=== PATIENT | female | born 1975 | race Caucasian/White ===

== ENCOUNTER 2016-12-06 22:00 | Emergency (ER) | payer OTHER ==
[2016-12-06] MEDS ORDERED: KETOROLAC 15 MG/1 ML VIAL IVP ONE (22:21)
[2016-12-06] MEDS ORDERED: cefTRIAXone Inj 2 GM in Sodium Chloride 0.9% 100 ML IV ONE (22:21)
[2016-12-06] MEDS ORDERED: Sodium Chloride 0.9% 1,000 ML PRIMARY IV ONE (22:21)
[2016-12-06] MEDS ORDERED: DIPH,PERTUSS,TET(ADACEL) VAC/PF 0.5 ML (Tdap) IM ONE (22:27)
--- NOTE | 2016-12-06 22:30 | PDOC ---
Skin Rash/Insect/Abscess HPI - General Chief Complaint: Integumentary Stated Complaint: ABRASION TO LEFT KNEE Date Seen by Provider: 12/06/16 Time Seen by Provider: 22:25 Source: POSITIVE: Patient Exam Limitations: POSITIVE: No limitations Nurse's Notes Reviewed & Considered: Yes - History of Present Illness Initial Comments: Old female sustained a high pressure water injection of her left knee on Tuesday. She comes in now with erythema pain and swelling of the left knee. She denies any headache, chest pain, shortness of breath, fever chills or sweats , nausea vomiting or diarrhea. 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 Have you received a tetanus shot in the past 10 years?: No Body Location Affected: REPORTS: Lower Extremity (L) Timing: REPORTS: Abrupt Duration: >24 hours Severity: Moderate Quality: REPORTS: "Pain", Tenderness Identified Causes: REPORTS: Yes When Exposed: REPORTS: Just Prior to Sx Onset Where Exposed: REPORTS: Work Suspected Etiology: REPORTS: Other (High-pressure water injection from a cow washer.) Recent Care Received: REPORTS: Denies Any Prior Injuries Related to Current Complaint?: No - Patient Home Medications Home Medications: Home Medications NK [No Home Medications Reported] 12/06/16 - Patient Allergies Allergies/Adverse Reactions: Allergies Allergy/AdvReac Type Severity Reaction Status Date / Time Sulfa (Sulfonamide Allergy HIVES Verified 12/06/16 22:19 Antibiotics) ROS - Limitations ROS Limitations: No Limitations Constitution: REPORTS: Denies Symptoms Cardiovascular: REPORTS: Denies Cardiac Symptoms Respiratory: REPORTS: Denies Resp Symptoms Neurological: REPORTS: Denies Neuro Symptoms Gastrointestinal: REPORTS: Denies GI Symptoms Endocrine: REPORTS: Denies Symptoms Musculoskeletal: REPORTS: Denies MS Symptoms Genitourinary: REPORTS: Denies Symptoms Eyes: REPORTS: Denies Symptoms ENT: REPORTS: Denies Symptoms Skin: REPORTS: Other (Erythema and swelling with heat left knee.) Lympathic: REPORTS: Denies Lympathic Symptoms Immunologic: POSITIVE: Denies Symptoms Psychiatric: POSITIVE: Denies Psych Symptoms Skin Rash/Insect/Abscess Exam - General Appearance General Appearance: REPORTS: Alert, Cooperative, No Acute Distress - Skin Skin: REPORTS: Warm, Dry, Tender Indurated Area, Erythema, Other (Over the medial left knee an area of induration and tenderness present) Skin Location: REPORTS: Extremities (Left medial knee) Skin Symptoms: REPORTS: Warmth, Tenderness, Swelling, Induration - Extremities Extremity: Non-Tender: (RUE), (RLE), (LLE), Normal ROM: (All Extremities), Normal Inspection: (LLE), (RLE), (RUE), Pelvis Stable: (All Extremities), Normal Tendon Exam: (All Extremities), Edema / Swelling: (LUE), Tender: (LUE), Signs / Symptoms of Infection Present: (LUE), Ecchymosis: (LUE), Erythema: (LUE) - HEENT HEENT: POSITIVE: Head Inspection Nml, Eyes Inspection Nml, Ears Inspection Nml, Nose Inspection Nml, Oral/Dental Inspect. Nml, Pharynx Inspect. Nml, PERRL, EOMI - Neck Neck: REPORTS: Trachea Midline, No Swelling - Respiratory Respiratory: REPORTS: No Respiratory Distress, Breath Sounds Normal - Cardiovascular Cardiovascular: REPORTS: Regular Rate and Rhythm, Heart Sounds Normal, Equal Pulses, Strong Pulses - Abdomen Abdomen: Soft: (All Quadrants), Normal Bowel Sounds: (All Quadrants), Denies Tenderness: (All Quadrants), No Splenomegaly: (All Quadrants), No Hepatomegaly: (All Quadrants), No Guarding: (All Quadrants), No Rebound: (All Quadrants), No Palpable Pulse: (All Quadrants), No Palpabale Mass: (All Quadrants), No Distention: (All Quadrants), No Rigidity: (All Quadrants) - Neurological / Psychological Neurological: REPORTS: Oriented X3, synchronizer Normal As Tested, Motor Normal, Sensation Normal, 5, 6 Procedures - Laceration/Wound Repair Did patient have a laceration repair: No Skin Rash/Abscess Progress - Results Reviewed by me Xrays/CTs/US Reviewed by me: Yes Discussed with Radiologist: Yes Labs Normal Except for:: Abnormal Lab Results: Entire Visit 12/06/16 Range/Units 22:33 MCV 99.1 H (81-99) FL MCH 34.7 H (27-31) PG Baso % (Auto) 1.8 H (0-1) % Potassium 3.4 L (3.8-5.2) meq/L Carbon Dioxide 22 L (23-33) meq/L BUN/Creatinine Ratio 21.42 H (6-20) AST 46 H (8-39) IU/L Lab Results Reviewed: Yes - Patient's Progress Pain Medication Addressed: POSITIVE: Yes Re-Examine Time:: 23:33 Status: POSITIVE: Improved MDM / ED Course: Patient was examined, an IV started, blood drawn and sent to lab for studies, ultrasound was obtained. Findings: CBC is within normal limits, comprehensive metabolic panel is within normal limits, ultrasound shows no DVT present, no free air in the subcutaneous space. Assessment: High pressure water injection left knee. Plan: Discharge home, prescription for Keflex for 10 days, Tal[place]ott as prescribed. Return to the emergency department if increasing erythema, purulent drainage, or fevers. 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
[2016-12-06 22:39] LABS: HEMATOCRIT 43.1 % (37.0-47.0); HEMOGLOBIN 15.1 g/dL (12.0-16.0); MEAN CORPUSCULAR HEMOGLOBIN 34.7 PG (27-31); MEAN CORPUSCULAR VOLUME 99.1 FL (81-99); RED BLOOD COUNT 4.35 10^6/uL (4.20-5.40)
[2016-12-06 22:40] LABS: BASOPHILS # (AUTO) 0.13 10*3/UL; BASOPHILS % (AUTO) 1.8 % (0-1); EOSINOPHILS # (AUTO) 0.16 10*3/UL; EOSINOPHILS % (AUTO) 2.2 % (0-8); LYMPHOCYTES # (AUTO) 2.45 10*3/uL; MONOCYTES # (AUTO) 0.71 10*3/UL (0.3-0.8); MONOCYTES % (AUTO) 9.6 % (5-15); NEUTROPHILS # (AUTO) 3.95 10*3/UL; NEUTROPHILS % (AUTO) 53.1 % (50-80); PLATELET MORPHOLOGY COMMENT NORMAL MORPHOLOGY (NORM); RBC MORPHOLOGY COMMENT NORMAL MORPHOLOGY (NORM); WBC MORPHOLOGY COMMENT NORMAL MORPHOLOGY (NORM)
[2016-12-06 22:45] LABS: BLOOD UREA NITROGEN 15 mg/dL (7-22); BUN/CREATININE RATIO 21.42 (6-20); CALCIUM 9.2 mg/dL (8.7-10.7); EST GLOMERULAR FILTRATION > 60 (>60 ml/min/1.73m(2))
--- NOTE | 2016-12-06 23:21 | DI ---
HISTORY: High pressure water injection left leg. COMPARISON: None. TECHNIQUE: Duplex Doppler examination of the deep veins of the lower extremity was performed with co mpression. FINDINGS: Spectral Doppler demonstrates normal respiratory variation. There is an appropriate respo nse to compression maneuvers. There is no evidence of intraluminal thrombus. IMPRESSION: 1. No evidence of deep venous thrombosis. NOTE: The interpreting Radiologist was not present at the time of ultrasound interrogation.
[2016-12-07 04:31] VITALS: RESP 18; TEMP 97.5
== END 2016-12-06 23:41 | disposition home or self-care (01) ==
LOC: ER 22:00
DX: L03.116 Cellulitis of left lower limb (principal); M25.562 Pain in left knee; W49.9XXA Exposure to other inanimate mechanical forces, initial encounter; Y99.0 Civilian activity done for income or pay
CPT/HCPCS: 80053; 85025; 90471; 93971; 96361; 96365; 96375; 99283 ×2; J0696; J1885; 90715; J7030; J7050